=== PATIENT | female | born 1950 | race Caucasian/White ===

== ENCOUNTER 2025-08-15 20:23 | Emergency (ER) | payer MEDICARE, BC ==
[2025-08-15] MEDS: methylPREDNISolone Sodium Succinate 125 MG/2 ML SDV IVPUSH ONE (21:00)
== END 2025-08-15 21:17 | disposition home or self-care (01) ==
LOC: JP.ED 20:23
DX: T78.40XA Allergy, unspecified, initial encounter (principal)
CPT/HCPCS: 96374; 99283; J2919